=== PATIENT | female | born 1990 | race American Indian/Alaskan Native ===

== ENCOUNTER 2022-02-12 11:15 | Emergency (ER) | payer SELFPAY ==
[2022-02-12] MEDS ORDERED: KETOROLAC 30 MG/1 ML INJ IV ONE (11:33)
[2022-02-12] MEDS ORDERED: SODIUM CHLORIDE 0.9% 1000 ML 1,000 ML IV ONE (11:33)
[2022-02-12 12:28] LABS: Basophils # (Auto) 0.1 K/mm3 (0.0-0.1); Basophils % (Auto) 1.7 % (0.0-1.8); Eosinophils # (Auto) 0.1 K/mm3 (0.0-0.4); Eosinophils % (Auto) 2.7 % (0.0-4.3); Hematocrit 35.6 % (30.3-42.9); Hemoglobin 11.8 gm/dl (10.1-14.3); Lymphocytes # (Auto) 0.9 K/mm3 (1.2-5.4); Lymphocytes % (Auto) 19.5 % (13.4-35.0); Mean Corpuscular HGB Conc 33 % (30-34); Mean Corpuscular Volume 86 fl (79-97); Monocytes # (Auto) 0.5 K/mm3 (0.0-0.8); Monocytes % (Auto) 10.5 % (0.0-7.3); Platelet Count 254 K/mm3 (140-440); Red Blood Count 4.15 M/mm3 (3.65-5.03); Red Cell Distribution Width 13.3 % (13.2-15.2)
[2022-02-12 12:41] LABS: INR 0.98 (0.87-1.13)
--- NOTE | 2022-02-12 12:41 | Cat Scan Report ---
CT BRAIN: 02/12/2022 INDICATION / CLINICAL INFORMATION: Headache x few days. COMPARISON: None available. FINDINGS: BRAIN/INTRACRANIAL STRUCTURES: Unenhanced CT images of the brain demonstrate no evidence of acute abn ormality. Ventricles and sulci are normal in size and shape. There is no evidence of ischemic injury, hemorrhage, or mass. There are no abnormal extra-axial fluid collections. EXTRACRANIAL STRUCTURES: Unremarkable. IMPRESSION: Negative unenhanced CT of the brain. All CT scans at this location are performed using dose reduction to ALARA by means of automated expos ure control. Signer Name: Gio Olmedo MD Signed: 02/12/2022 12:37 PM Workstation Name: [id number]
[2022-02-12 12:52] LABS: Alanine Aminotransferase 11 units/L (7-56); Albumin 4.4 g/dL (3.9-5); Blood Urea Nitrogen 8 mg/dL (7-17); Calcium 9.6 mg/dL (8.4-10.2); Hemolysis Index 1
[2022-02-12 12:53] LABS: BUN/Creatinine Ratio 13
[2022-02-12 13:54] LABS: Bacteria,Urine 1+ /HPF (Negative); Bilirubin,Urine NEG (Negative); Blood,Urine LG (Negative); Color,Urine Straw (Yellow); Mucus,Urine FEW /HPF; Protein,Urine <15 mg/dL mg/dL (Negative); Urobilinogen,Urine < 2.0 mg/dL (<2.0)
[2022-02-12 13:56] LABS: HCG Qualitative,Urine Negative (Negative)
--- NOTE | 2022-02-12 14:23 | XRay Report ---
CHEST 1 VIEW 02/12/2022 1:11 PM INDICATION / CLINICAL INFORMATION: Dyspnea. COMPARISON: 04/28/21. FINDINGS: SUPPORT DEVICES: None. HEART / MEDIASTINUM: The heart size and pulmonary vasculature are normal. LUNGS / PLEURA: No significant pulmonary or pleural abnormality. No pneumothorax. ADDITIONAL FINDINGS: No significant additional findings. IMPRESSION: No acute abnormality or significant change. Signer Name: Harvinder Daniel MD Signed: 02/12/2022 2:19 PM Workstation Name: [id number]
--- NOTE | 2022-02-12 15:10 | Emergency Department Report ---
ED Chest Pain HPI - General Chief Complaint: Chest Pain Stated Complaint: CHEST PAIN/HEADACHE Time Seen by Provider: 02/12/22 11:33 Source: patient, EMS Mode of arrival: Wheelchair Limitations: Language Barrier - History of Present Illness Initial Comments: chest pain headahe and migraine since today, pt is from [facility] so poor historian cos of language but no fever , history of the same no sob no fever -: Gradual, days(s) Pain Location: left chest Pain Radiation: none Severity scale (0 -10): 3 Worsens With: nothing re: nausea - Related Data Previous Rx's Medication Instructions Recorded Last Taken Type Amoxicillin/Potassium Clav 1 each PO Q12H #14 tablet 04/28/21 Unknown Rx [Augmentin 875-125 Tablet] Fluticasone [Flonase] 2 spray NS QDAY #1 bottle 04/28/21 Unknown Rx Ibuprofen [Motrin] 800 mg PO Q8HR PRN #30 tablet 04/28/21 Unknown Rx Loratadine/Pseudoephedrine 1 each PO Q12H #20 tablet 04/28/21 Unknown Rx [Claritin-D 12Hr] Allergies Allergy/AdvReac Type Severity Reaction Status Date / Time No Known Allergies Allergy Verified 02/12/22 12:29 Heart Score - HEART Score History: Slightly suspicious EKG: Normal Age: < 45 Risk factors: No known risk factors Troponin: < normal limit HEART Score: 0 - EKG Read Time Time EKG Completed: 15:09 EKG Read Time: 15:09 ED Review of Systems ROS: Stated complaint: CHEST PAIN/HEADACHE Other details as noted in HPI Constitutional: denies: chills, fever Eyes: denies: eye pain, eye discharge, vision change ENT: denies: ear pain, throat pain Respiratory: denies: cough, shortness of breath, wheezing Cardiovascular: denies: chest pain, palpitations Endocrine: no symptoms reported Gastrointestinal: denies: abdominal pain, nausea, diarrhea Genitourinary: denies: urgency, dysuria, discharge Musculoskeletal: denies: back pain, joint swelling, arthralgia Skin: denies: rash, lesions Neurological: denies: headache, weakness, paresthesias Psychiatric: denies: anxiety, depression Hematological/Lymphatic: denies: easy bleeding, easy bruising ED Past Medical Hx - Past Medical History Previous Medical History?: No Hx Hypertension: No Hx CVA: No - Surgical History Past Surgical History?: No Additional Surgical History: - Medications Home Medications: Home Medications Medication Instructions Recorded Confirmed Last Taken Type Amoxicillin/Potassium Clav 1 each PO Q12H #14 tablet 04/28/21 Unknown Rx [Augmentin 875-125 Tablet] Fluticasone [Flonase] 2 spray NS QDAY #1 bottle 04/28/21 Unknown Rx Ibuprofen [Motrin] 800 mg PO Q8HR PRN #30 tablet 04/28/21 Unknown Rx Loratadine/Pseudoephedrine 1 each PO Q12H #20 tablet 04/28/21 Unknown Rx [Claritin-D 12Hr] ED Physical Exam - General Limitations: No Limitations General appearance: alert, in no apparent distress - Head Head exam: Present: atraumatic, normocephalic - Eye Eye exam: Present: normal appearance - ENT ENT exam: Present: mucous membranes moist - Neck Neck exam: Present: normal inspection - Respiratory Respiratory exam: Present: normal lung sounds bilaterally. Absent: respiratory distress - Cardiovascular Cardiovascular Exam: Present: regular rate, normal rhythm. Absent: systolic murmur, diastolic murmur, rubs, gallop - GI/Abdominal GI/Abdominal exam: Present: soft, normal bowel sounds - Extremities Exam Extremities exam: Present: normal inspection - Back Exam Back exam: Present: normal inspection - Neurological Exam Neurological exam: Present: alert, oriented X3 - Psychiatric Psychiatric exam: Present: normal affect, normal mood - Skin Skin exam: Present: warm, dry, intact, normal color. Absent: rash ED Course Vital Signs 02/12/22 02/12/22 02/12/22 11:22 11:31 11:45 Pulse Rate 75 101 H 88 Respiratory 25 H 13 19 Rate Blood Pressure 86/49 90/53 O2 Sat by Pulse 97 97 Oximetry 02/12/22 02/12/22 12:01 12:15 Pulse Rate 85 91 H Respiratory 21 17 Rate Blood Pressure 88/55 88/54 O2 Sat by Pulse 98 98 Oximetry ED Medical Decision Making - Lab Data Result diagrams: 02/12/22 12:12 02/12/22 12:12 - EKG Data -: EKG Interpreted by Ms EKG shows normal: sinus rhythm Rate: tachycardia - EKG Data When compared to previous EKG there are: previous EKG unavailable - Radiology Data Radiology results: report reviewed - Medical Decision Making fluids given BP improved because of nitro , pain meds given feels better feels good to ho home ct head normal vss no distress , has recurrent migraine Critical care attestation.: If time is entered above; I have spent that time in minutes in the direct care of this critically ill patient, excluding procedure time. ED Disposition Clinical Impression: Chest pain, Migraine Disposition: HOME / SELF CARE / HOMELESS Is pt being admited?: No Does the pt Need Aspirin: No Condition: Stable Instructions: Nonspecific Chest Pain, Adult, Recurrent Migraine Headache, [id number] Referrals: ERIC ABURTO MD [Primary Care Provider] - 3-5 Days
[2022-02-12 18:55] VITALS: BP 95/60
--- NOTE | 2022-02-15 08:31 | Electrocardiograph Report ---
[facility] Test Date: 2022-02-12 Test Time: 11:23:57 Pat Name: CHEYANNE PRESLEY Department: Room: Gender: F Pillar Man: MIKE : 1990 Requested By: RO RICHARDS Order Number: [id number] Reading MD: Ebony Rushing Measurements Intervals Ronda Rate: 104 P: 25 GA: 159 QRS: 30 QRSD: 67 T: 1 QT: 322 QTc: 423 Interpretive Statements Sinus tachycardia Nonspecific T wave abnormality No previous ECG available for comparison Electronically Signed On 02-15-2022 8:31:46 EDT by Ebony Rushing
== END 2022-02-12 19:10 | disposition home or self-care (01) ==
LOC: ED 11:15
DX: R07.9 Chest pain, unspecified (principal); G43.909 Migraine, unspecified, not intractable, without status migrainosus
CPT/HCPCS: 36415; 70450; 71045; 80053; 81001; 81025; 82140; 83880; 85025; 85610; 86140; 87076; 87086; 87186; 93005; 96361; 96374; 99285; J1885; J7030; Q0162